=== PATIENT | male | born 1960 | race Caucasian/White ===

== ENCOUNTER → 2016-12-14 | Outpatient (CLI) | payer BC | END | disposition home or self-care (01) | LOC: MW.CHPM 10:39 | PROVIDERS: ATTEND Anesthesiology | DX: Z51.81 Encounter for therapeutic drug level monitoring (principal); Z79.891 Long term (current) use of opiate analgesic | CPT/HCPCS: 80305 ==

== ENCOUNTER → 2017-02-08 | Outpatient (CLI) | payer BC | LOC: MW.CHPM 09:56 | PROVIDERS: ATTEND Anesthesiology | DX: Z51.81 Encounter for therapeutic drug level monitoring (principal); Z79.891 Long term (current) use of opiate analgesic | CPT/HCPCS: 80305; G0480 ==